=== PATIENT | male | born 1965 | race African-American/Black ===

== ENCOUNTER 2018-03-18 07:54 | Observation (INO) ==
--- NOTE | 2018-03-18 08:48 | ED ---
HPI General Chief Complaint: Extremity Problem,Nontraumatic Stated Complaint: Right arm complaint Time Seen by Provider: 03/18/18 08:08 Source: patient Mode of arrival: ambulatory Limitations: no limitations History of Present Illness HPI narrative: Patient is a 52-year-old male with history of hypertension however he has not taken any medications or seen a doctor for 2 years who originally presented for evaluation of right upper back pain and arm cramping however upon further questioning also has had episodes of chest pain intermittently for several months or years the last of which was this morning. Patient describes today's episode as if somebody was sitting on his chest and it lasted approximately 20 minutes. It was not associated with exertion, diaphoresis, shortness of breath. He has never been evaluated for these episodes of chest pain. The right upper back pain has been present for approximately 4 days after patient was lifting a ladder onto the top of his truck. Pain is worse with palpation or movement. MD complaint: Reports chest pain STEMI Alert: No Duration: intermittent Onset: during rest Pain location: Reports substernal Severity: moderate Quality: Reports heaviness Pain radiation: Reports none Relieving factors: nothing Exacerbating factors: nothing Context: Denies recent illness, recent surgery, recent immobilization, recent travel, trauma/injury and history of DVT/PE Associated symptoms: Reports leg swelling; Denies nausea, vomiting, diaphoresis , dyspnea, sense of impending doom, syncope and palpitations Treatments prior to arrival chest pain: Reports none Related Data Home Medications Medication Instructions Recorded Confirmed No Known Home Medications 03/18/18 03/18/18 Allergies Allergy/AdvReac Type Severity Reaction Status Date / Time No Known Allergies Allergy Verified 03/18/18 08:22 Review of Systems ROS: all other systems reviewed are negative [facility] Medical History Medical History HTN (hypertension) (Acute) Heart murmur (Acute) Social History Social History Substance History: No History of Abuse Second Hand Smoke Exposure: No Smoking Status: Former smoker How Often Do You Have a Drink Containing Alcohol: 4 or more times a week Recent Travel in [facility] within the Last 8 Weeks: No Recent Out of Country Travel within the Last 8 Weeks: No Immunization History Tetanus Immunization: Unsure Exam Narrative Exam Narrative: GENERAL: Awake, alert, in no acute acute distress SKIN: Focused skin assessment warm/dry. HEAD: Atraumatic. Normocephalic. EYES: Pupils equal and round. No scleral icterus. No injection or drainage. ENT: No nasal bleeding or discharge. Mucous membranes pink and moist. NECK: Trachea midline. No JVD. CARDIOVASCULAR: Regular rate and rhythm. No murmur appreciated. RESPIRATORY: No accessory muscle use. Clear to auscultation. Breath sounds equal bilaterally. GASTROINTESTINAL: Abdomen soft, non-tender, nondistended. Hepatic and splenic margins not palpable. MUSCULOSKELETAL: No obvious deformities. No clubbing. No cyanosis. No edema. Tenderness to palpation over right scapula. Full range of motion of right upper extremity. NEUROLOGICAL: Awake and alert. No obvious cranial nerve deficits. Motor grossly within normal limits. Normal speech. PSYCHIATRIC: Appropriate mood and affect; insight and judgment normal. Course Initial Documented Vital Signs Temperature 99.4 F 03/18/18 07:57 Pulse Rate 74 03/18/18 07:57 Respiratory Rate 16 03/18/18 07:57 Blood Pressure 201/98 H 03/18/18 07:57 Pulse Oximetry 99 03/18/18 07:57 Last Documented Vital Signs Temperature 99.4 F 03/18/18 07:57 Pulse Rate 66 03/18/18 10:36 Respiratory Rate 17 03/18/18 10:36 Blood Pressure 149/83 H 03/18/18 10:36 Pulse Oximetry 96 03/18/18 10:36 Medical Decision Making MDM Narrative Medical decision making narrative: 52-year-old male with history of hypertension presents for evaluation of right upper back pain however also has had several episodes of chest pain the last of which was this morning. His upper back pain appears to be muscular in nature, however I am concerned about patient's episodes of chest pain which could represent an acute coronary syndrome or stable angina. Will do an ACS rule out workup on patient and admit to the chest pain unit for stress testing if negative. Chest x-ray unremarkable and first troponin negative. Will admit to chest pain center for ACS rule out Medical Screen Exam Complete: Yes Emergency Medical Condition: Yes Lab Data Result diagrams: 03/18/18 08:39 03/18/18 08:39 Lab Results 03/18/18 03/18/18 03/18/18 Range/Units 08:39 08:39 08:39 WBC 9.6 (4.0-11.0) th/mm3 RBC 4.66 (4.50-5.90) mil/mm3 Hgb 14.8 (13.0-17.0) gm/dL Hct 44.2 (39.0-51.0) % MCV 94.8 (80.0-100.0) fL MCH 31.8 (27.0-34.0) pg MCHC 33.6 (32.0-36.0) % RDW 13.1 (11.6-17.2) % Plt Count 226 (150-450) th/mm3 MPV 6.6 L (7.0-11.0) fL Neut % (Auto) 54.3 (16.0-70.0) % Lymph % (Auto) 34.4 (9.0-44.0) % Kem[place] % (Auto) 8.8 H (0.0-8.0) % Eos % (Auto) 1.9 (0.0-4.0) % Baso % (Auto) 0.6 (0.0-2.0) % Neut # (Auto) 5.2 (1.8-7.7) th/mm3 Lymph # (Auto) 3.3 (1.0-4.8) th/mm3 Kemper # (Auto) 0.8 (0.0-0.9) th/mm3 Eos # (Auto) 0.2 (0.0-0.4) th/mm3 Baso # (Auto) 0.1 (0.0-0.2) th/mm3 WBC Differential . Differential Comment Auto diff final PT 10.4 (9.8-11.6) sec INR 1.0 Ratio APTT (23.4-31.7) sec Sodium 140 (136-145) meq/L Potassium 4.1 (3.5-5.1) meq/L Chloride 105 (98-107) meq/L Carbon Dioxide 26.0 (21.0-32.0) meq/L Anion Gap 9 (5-15) meq/L BUN 8 (7-18) mg/dL Creatinine 0.91 (0.60-1.30) mg/dL Estimated GFR Greater than 89 (>89) mL/min Random Glucose 99 (74-106) mg/dL Calcium 9.1 (8.5-10.1) mg/dL Total Bilirubin 0.2 (0.2-1.0) mg/dL AST 61 H (15-37) U/L ALT 83 H (12-78) U/L Alkaline Phosphatase 68 (45-117) U/L Troponin I Less than 0.02 L (0.02-0.05) ng/mL Total Protein 7.7 (6.4-8.2) g/dL Albumin 3.6 (3.4-5.0) g/dL 03/18/18 Range/Units 08:39 WBC (4.0-11.0) th/mm3 RBC (4.50-5.90) mil/mm3 Hgb (13.0-17.0) gm/dL Hct (39.0-51.0) % MCV (80.0-100.0) fL MCH (27.0-34.0) pg MCHC (32.0-36.0) % RDW (11.6-17.2) % Plt Count (150-450) th/mm3 MPV (7.0-11.0) fL Neut % (Auto) (16.0-70.0) % Lymph % (Auto) (9.0-44.0) % Kemper % (Auto) (0.0-8.0) % Eos % (Auto) (0.0-4.0) % Baso % (Auto) (0.0-2.0) % Neut # (Auto) (1.8-7.7) th/mm3 Lymph # (Auto) (1.0-4.8) th/mm3 Kemper # (Auto) (0.0-0.9) th/mm3 Eos # (Auto) (0.0-0.4) th/mm3 Baso # (Auto) (0.0-0.2) th/mm3 WBC Differential Differential Comment PT (9.8-11.6) sec INR Ratio APTT 27.4 (23.4-31.7) sec Sodium (136-145) meq/L Potassium (3.5-5.1) meq/L Chloride (98-107) meq/L Carbon Dioxide (21.0-32.0) meq/L Anion Gap (5-15) meq/L BUN (7-18) mg/dL Creatinine (0.60-1.30) mg/dL Estimated GFR (>89) mL/min Random Glucose (74-106) mg/dL Calcium (8.5-10.1) mg/dL Total Bilirubin (0.2-1.0) mg/dL AST (15-37) U/L ALT (12-78) U/L Alkaline Phosphatase (45-117) U/L Troponin I (0.02-0.05) ng/mL Total Protein (6.4-8.2) g/dL Albumin (3.4-5.0) g/dL Imaging Data Radiologist's impression: Chest X-Ray 03/18/18 08:37 CONCLUSION: No acute cardiopulmonary disease. ECG Data EKG Prior to Arrival: No Attestation: I personally reviewed and interpreted this ECG as follows: Interpretation: Normal sinus rhythm with a rate of 67, slight J-point elevation in V2-V3, T wave flattening in lead III Discharge Plan Discharge Disposition Patient Disposition: ED Admit(ED Internal Use Only) Discharge Condition Condition: Stable Discharge Order Discharge Orders: ED Use Only Admit Order (Routine); Ordered 03/18/18 Ordered By: Cristy Zayas Discharge Details Diagnosis: Nonspecific chest pain Physicians Team ED Provider: Cristy Zayas Primary Care Provider: Primary Care Daysi Justin Attending Provider: Dago Cruz Discharge Interventions Interventions: Vital Signs Last Done: 03/18/18 08:07 Status ED Status: Admitted Observation Patient
[2018-03-18 08:49] LABS: Baso # (Auto) 0.1 th/mm3 (0.0-0.2); Baso % (Auto) 0.6 % (0.0-2.0); Eos # (Auto) 0.2 th/mm3 (0.0-0.4); Eos % (Auto) 1.9 % (0.0-4.0); Hematocrit 44.2 % (39.0-51.0); Hemoglobin 14.8 gm/dL (13.0-17.0); Lymph # (Auto) 3.3 th/mm3 (1.0-4.8); Lymph % (Auto) 34.4 % (9.0-44.0); Mean Corpuscular HGB Conc 33.6 % (32.0-36.0); Mean Corpuscular Hemoglobin 31.8 pg (27.0-34.0); Mean Corpuscular Volume 94.8 fL (80.0-100.0); Mean Platelet Volume 6.6 fL (7.0-11.0); Mono # (Auto) 0.8 th/mm3 (0.0-0.9); Mono % (Auto) 8.8 % (0.0-8.0); Neut # (Auto) 5.2 th/mm3 (1.8-7.7); Neut % (Auto) 54.3 % (16.0-70.0); Platelet Count 226 th/mm3 (150-450); Red Blood Count 4.66 mil/mm3 (4.50-5.90); Red Cell Distribution Width 13.1 % (11.6-17.2); White Blood Count 9.6 th/mm3 (4.0-11.0)
[2018-03-18 08:57] LABS: Prothrombin Time 10.4 sec (9.8-11.6)
[2018-03-18 09:06] LABS: Albumin 3.6 g/dL (3.4-5.0); Anion Gap 9 meq/L (5-15); Aspartate Aminotransferase 61 U/L (15-37); Blood Urea Nitrogen 8 mg/dL (7-18); Calcium 9.1 mg/dL (8.5-10.1); Chloride 105 meq/L (98-107); Glomerular Filtration Rate Greater Than 89 mL/min (>89); Glucose,Random 99 mg/dL (74-106); Potassium 4.1 meq/L (3.5-5.1); Sodium 140 meq/L (136-145)
[2018-03-18 09:07] LABS: Alanine Aminotransferase 83 U/L (12-78)
[2018-03-18 09:11] LABS: Alkaline Phosphatase 68 U/L (45-117); Total Protein 7.7 g/dL (6.4-8.2)
--- NOTE | 2018-03-18 09:19 | XR ---
EXAM DATE: 03/18/2018 9:13 AM EST AGE/SEX: 52 years / Male INDICATIONS: . Right arm pain and weakness. CLINICAL DATA: This is the patient's initial encounter. Patient reports that signs and symptoms have been present for 3 weeks and indicates a pain score of 6/10. MEDICAL/SURGICAL HISTORY: None. None. COMPARISON: No prior exams available for comparison. FINDINGS: PA and lateral views of the chest demonstrate the lungs to be symmetrically aerated without evidence of mass, infiltrate or effusion. The cardiomediastinal contours are unremarkable. Osseous structures are intact. CONCLUSION: No acute cardiopulmonary disease. Electronically signed by: Laure Farmer MD Board Certified Radiologist 03/18/2018 9:17 AM EST
[2018-03-18] MEDS ORDERED: Lidocaine 5% Patch T-DERMAL ONE (09:46)
[2018-03-18] MEDS ORDERED: Acetaminophen 500 MG Tablet PO PRN (10:21)
--- NOTE | 2018-03-18 11:06 | P.HPCA ---
History of Present Illness Primary Care Physician: No Primary Care Physician Chief Complaint: Chest pain History of Present Illness: 52 year old male with history of hypertension presents to ER for further evaluation of right arm/shoulder pain. During interview by ER physician, informed them of intermittent chest pain. Last episodes last night 2200 and this morning around 0600. Generally experiences chest pain twice weekly for the past 2 years, not always exertional related. Location substernal. Characterized "as someone sitting on my chest." No radiation. Duration 20 minutes. No associated symptoms of nausea, vomiting, dyspnea, or diaphoresis. No precipitating factors. No relieving factors. No recent illness, fever, or cough. Does not have a primary care provider, quit taking blood pressure medications over 2 years ago. States "I didn't think I needed them." Past cardiac testing 04/15/14 Echocardiogram-Mild LVH, EF 60-65%, Grade 1 diastolic dysfunction. Does not recall past cardiac testing Social history Known hypertension, unfortunately quit taking medications 2 years ago. No known diabetes, hyperlipidemia, or CAD. Lifelong nonsmoker. Drinks 12 beers daily. No recreational drug use. . 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 Family history Noncontributory for early onset cardiovascular disease. - Diagnosis (1) Nonspecific chest pain (2) Hypertension (3) Alcohol abuse Review of Systems All other systems reviewed negative except [facility] - History History Provided By: Patient - Medical History Medical History: Medical History (Last Updated 03/18/18 @ 14:51 by CRISTY Gipson) Depression Diastolic dysfunction HTN (hypertension) Heart murmur - Family History Family History: Family History (Last Updated 03/18/18 @ 14:55 by CRISTY Gipson) Mother Pacemaker Father No problems noted. - Social History I have reviewed the patient's Social History: Yes - Tobacco History Second Hand Smoke Exposure: No - Alcohol History How Often Do You Have a Drink Containing Alcohol: 4 or more times a week (12 beers daily) - Substance Use History Substance History: No History of Abuse - Travel History History of Recent Travel: No Recent Travel in the [place] Within the Last 8 Weeks: No Recent Travel Out of the Country Within the Last 8 Weeks: No - Immunization History Tetanus Immunization: Unsure Medications and Allergies Active Medications: Active Medications Acetaminophen (Tylenol) 500 mg PO Q4H PRN PRN Reason: HEADACHE Ondansetron HCl (Zofran Inj) 4 mg IV.PUSH Q6H PRN PRN Reason: NAUSEA Patch Removal (Remove Old Patch) 1 each T-DERMAL HS JOYCE Sodium Chloride (Ns Flush) 2 ml IV.FLUSH UNSCH PRN PRN Reason: FLUSH AFTER USING IV ACCESS Sodium Chloride (Ns Flush) 2 ml IV.FLUSH BID JOYCE Sodium Chloride (Ns Flush) 2 ml IV.FLUSH PRN PRN PRN Reason: FLUSH AFTER USING IV ACCESS Allergies Allergy/AdvReac Type Severity Reaction Status Date / Time No Known Allergies Allergy Verified 03/18/18 08:22 Exam Vital signs: Vital Signs 03/18/18 07:57 03/18/18 08:07 03/18/18 08:54 Temperature 99.4 F Pulse Rate 74 66 Respiratory Rate 16 17 Blood Pressure 201/98 H 179/93 H Pulse Oximetry 99 98 98 03/18/18 08:55 03/18/18 09:03 03/18/18 10:36 Temperature Pulse Rate 68 68 66 Respiratory Rate 16 17 Blood Pressure 164/90 H 149/83 H Pulse Oximetry 97 96 Intake & Output 03/17/18 03/18/18 03/18/18 18:59 06:59 18:59 Weight 107.955 kg Narrative: GENERAL: Alert WN, WD, NAD, pleasant, obese, -[place] male who appears older than stated age HEAD: NC, AT EYES: Sclera muddy, conjunctiva without injection, pupils equal and round ENT: Mucous membranes pink and moist NECK: Supple, no masses, trachea midline CV: RRR, faint systolic murmur, no JVD, S1-S2 split. No carotid or femoral bruits. RESP: Clear lungs throughout bilateral, no crackles, wheeze, rhonchi, symmetrical chest rise, nonlabored, able to speak in full sentences ABD: Soft, NT, ND, no masses, positive bowel tones EXT: Pulses +2x4, no dependent edema MS: Normal tone x4 extremities, nontender, no obvious deformities, full range of motion NEURO: Motor strength 5/5, gait WNL PSYCH: A+O x3, pleasant affect, appropriate speech, mood, insight and judgment SKIN: Normal turgor, normal texture, no lesions, no rashes, sluggish cap refill , diminished lower extremity hair distribution, toenails discolored brown, scar above left eye, scar on left hand Results 03/18/18 08:39 03/18/18 08:39 Cardiac Enzymes 03/18/18 Range/Units 08:39 AST 61 H (15-37) U/L Troponin I Less than 0.02 L (0.02-0.05) ng/mL Coagulation 03/18/18 03/18/18 Range/Units 08:39 08:39 PT 10.4 (9.8-11.6) sec APTT 27.4 (23.4-31.7) sec CBC 03/18/18 Range/Units 08:39 WBC 9.6 (4.0-11.0) th/mm3 RBC 4.66 (4.50-5.90) mil/mm3 Hgb 14.8 (13.0-17.0) gm/dL Hct 44.2 (39.0-51.0) % Plt Count 226 (150-450) th/mm3 Neut # (Auto) 5.2 (1.8-7.7) th/mm3 Lymph # (Auto) 3.3 (1.0-4.8) th/mm3 [place]aca # (Auto) 0.8 (0.0-0.9) th/mm3 Eos # (Auto) 0.2 (0.0-0.4) th/mm3 Baso # (Auto) 0.1 (0.0-0.2) th/mm3 Comprehensive Metabolic Panel 03/18/18 Range/Units 08:39 Sodium 140 (136-145) meq/L Potassium 4.1 (3.5-5.1) meq/L Chloride 105 (98-107) meq/L Carbon Dioxide 26.0 (21.0-32.0) meq/L BUN 8 (7-18) mg/dL Creatinine 0.91 (0.60-1.30) mg/dL Calcium 9.1 (8.5-10.1) mg/dL AST 61 H (15-37) U/L ALT 83 H (12-78) U/L Alkaline Phosphatase 68 (45-117) U/L Total Protein 7.7 (6.4-8.2) g/dL Albumin 3.6 (3.4-5.0) g/dL Intake and Output 03/17/18 03/18/1819 22:59 06:59 14:59 Other: Weight 107.955 kg Patient Weight 03/19/18 06:59 Weight 107.955 kg - Imaging and Cardiology Imaging: Impressions Chest X-Ray 03/18/18 08:37 CONCLUSION: No acute cardiopulmonary disease. EKG interpretations - EKG EKG results cardiology: sinus rhythm, normal axis, normal QRS, normal ST/T Caprini VTE Risk Assessment Caprini VTE Risk Assessment: No/Low Risk (score <= 1) Caprini Risk Assessment Model: Point Value = 1 Point Value = 2 Point Value = 3 Point Value = 5 Age 41-60 Minor surgery BMI > 25 kg/m2 Swollen legs Varicose veins or History of unexplained or recurrent spontaneous Oral contraceptives or hormone replacement Sepsis (< 1 month) Serious lung disease, including pneumonia (< 1 month) Abnormal pulmonary function Acute myocardial infarction Congestive heart failure (< 1 month) History of inflammatory bowel disease Medical patient at bed rest Age 61-74 Arthroscopic surgery Major open surgery (> 45 min) Laparoscopic surgery (> 45 min) Malignancy Confined to bed (> 72 hours) Immobilizing plaster cast Central venous access Age >= 75 History of VTE Family history of VTE Factor V Leiden Prothrombin [id number] Lupus anticoagulant Anticardiolipin antibodies Elevated serum homocysteine Heparin-induced thrombocytopenia Other congenital or acquired thrombophilia Stroke (< 1 month) Elective arthroplasty Hip, pelvis, or leg fracture Acute spinal cord injury (< 1 month) Prophylaxis Regimen: Total Risk Factor Score Risk Level Prophylaxis Regimen 0-1 Low Early ambulation 2 Moderate Order ONE of the following: *Sequential Compression Device (SCD) *Heparin 5000 units SQ BID 3-4 Higher Order ONE of the following medications: *Heparin 5000 units SQ TID *Enoxaparin/Lovenox 40 mg SQ daily (WT < 150 kg, CrCl > 30 mL/min) *Enoxaparin/Lovenox 30 mg SQ daily (WT < 150 kg, CrCl > 10-29 mL/min) *Enoxaparin/Lovenox 30 mg SQ BID (WT < 150 kg, CrCl > 30 mL/min) AND/OR *Sequential Compression Device (SCD) 5 or more Highest Order ONE of the following medications: *Heparin 5000 units SQ TID (Preferred with Epidurals) *Enoxaparin/Lovenox 40 mg SQ daily (WT < 150 kg, CrCl > 30 mL/min) *Enoxaparin/Lovenox 30 mg SQ daily (WT < 150 kg, CrCl > 10-29 mL/min) *Enoxaparin/Lovenox 30 mg SQ BID (WT < 150 kg, CrCl > 30 mL/min) AND *Sequential Compression Device (SCD) Assessment and Plan - Assessment (1) Nonspecific chest pain Code(s): R07.9 - Chest pain, unspecified Status: Acute Plan: Admitted chest pain center. Continue ruling out ACS with 3 sets of EKGs and cardiac enzymes. Will be seen and evaluated by Dr. Dago Cruz. Discussed possible exercise stress test after evaluation by competency evaluated nurse aide. Patient agreeable to plan of care and verbalized understanding. (2) Hypertension Code(s): I10 - Essential (primary) hypertension Status: Acute Plan: Continue to monitor. Metoprolol 25 mg p.o. given in ER. The importance of tight blood pressure control and encouraged establishing with a primary care provider. Made aware of local free or [id number] local clinics. Plan to discharge home with amlodipine 5 mg po daily. (3) Alcohol abuse Code(s): F10.10 - Alcohol abuse, uncomplicated Status: Chronic Plan: Instructed to decrease alcohol intake, drinking no more than 1-2 drinks daily. Encouraged him to consider stopping all alcohol use. (2) Hypertension Qualifiers: Hypertension type: unspecified Qualified Code(s): I10 - Essential (primary) hypertension
[2018-03-18] MEDS ORDERED: Ketorolac Inj 30 MG/ML (IVP) Vial IV.PUSH ONE (11:31)
[2018-03-18] MEDS ORDERED: amLODIPine 5 MG Tablet PO ONE (11:32)
[2018-03-18 12:00] VITALS: BP 172/100; PULSE 60; RESP 16; TEMP 98.7; O2SAT 98
[2018-03-18 12:42] LABS: Bilirubin,Urine Negative (Negative); Clarity,Urine Clear (Clear); Color,Urine Yellow (Yellw/Straw); Glucose,Urine (UA) Negative (Negative); Leukocyte Esterase,Urine Trace (Negative); Nitrite,Urine Negative (Negative); Specific Gravity,Urine 1.017 (1.002-1.035)
--- NOTE | 2018-03-18 14:44 | TR ---
Date Performed: 03/18/2018 Time Performed: 12:11:03 DOCTOR: Dago Cruz DRUG LIST: CLINICAL HISTORY: REASON FOR TEST: Chest pain REASON FOR ENDING: OBSERVATION: CONCLUSION: Antwan protocol completed. Stopped sec to leg fatigue. Maximum XM=697 Max HR Achieved =83.0% Maximum MS=433/80 Total Exercise Time=7:03. No reprod chest pain. No ectopy. No st t segment c hanges. Good exercise tolerance. Normal bp response. Recovery quick and unremarkable. COMMENTS: Conclusion: Normal treadmill exercise. No evidence of ischemia.
--- NOTE | 2018-03-19 07:29 | ECG ---
Date Performed: 03/18/2018 Time Performed: 08:44:35 PTAGE: 52 years EKG: Sinus rhythm NONSPECIFIC T-WAVE ABNORMALITY BORDERLINE ECG NO PREVIOUS TRACING DOCTOR: Eliu Avery Interpretating Date/Time 03/19/2018 07:28:53
--- NOTE | 2018-03-19 07:29 | ECG ---
Date Performed: 03/18/2018 Time Performed: 11:47:34 PTAGE: 52 years EKG: Sinus rhythm BORDERLINE ECG PREVIOUS TRACING : 02/26/2014 08.08 Since previous tracing, no significant change noted DOCTOR: Eliu Avery Interpretating Date/Time 03/19/2018 07:28:41
== END 2018-03-18 13:01 | disposition home or self-care (01) ==
LOC: NEDA 07:54 → NEPC 07:54 → NEPFCDU 11:00
CPT/HCPCS: 71020; 71046; 80053; 81001; 84484; 85025; 85610; 85730; 93005; 93017; 96374; 99285; G0378; J1885